=== PATIENT | male | born 1995 | race African-American/Black ===

== ENCOUNTER 2020-08-02 18:51 | Emergency (ER) | payer SELFPAY ==
[~2020-08-02] VITALS: Ht 177.8 cm; Wt 87.0 kg
[2020-08-02] MEDS ORDERED: LORAZEPAM 2MG/ML CPJ IV ONE ×4 (19:30→21:30)
[2020-08-02 19:41] LABS: BASOPHILS % 0.5 % (0.0-2.0); HEMATOCRIT. 47.1 % (42.0-52.0); HEMOGLOBIN. 15.9 g/dL (14.0-18.0); LYMPHOCYTES % 13.9 % (20.0-50.0); MEAN CORPUSCULAR HEMOGLOBIN 29.2 pg (28.0-32.0); MEAN CORPUSCULAR VOLUME 86.3 fL (80.0-94.0); MONOCYTES % 6.7 % (2.0-8.0); NEUTROPHILS % 78.9 % (40.0-76.0); PLATELET 323 x1000/uL (130-400); RED BLOOD CELL COUNT 5.46 mill/uL (4.7-6.1); RED CELL DISTRIBUTION WIDTH 13.4 % (11.6-14.6)
[2020-08-02 19:48] LABS: CHLORIDE 109 mEq/L (98-107)
[2020-08-02 19:51] LABS: INR 1.1; PARTIAL THROMBOPLASTIN TIME 26.9 sec (23.4-31.0); PROTHROMBIN TIME 11.5 sec (9.6-11.0)
[2020-08-02 19:56] LABS: ETHANOL BLOOD 256 mg/dL
[2020-08-02] MEDS: OLANZAPINE 10 MG/VIAL IM ONE ×2 (20:08→20:35)
[2020-08-02 20:34] LABS: *AMPHETAMINES SCREEN URINE NEGATIVE (NEGATIVE); *BARBITURATES SCREEN URINE NEGATIVE (NEGATIVE); *BENZODIAZEPINES SCREEN URINE NEGATIVE (NEGATIVE); *COCAINE SCREEN URINE NEGATIVE (NEGATIVE); METHADONE URINE SCREEN NEGATIVE (NEGATIVE)
[2020-08-02 20:35] LABS: CANNABINOID URINE SCREEN PRESUMTIVE POSITIVE (NEGATIVE); OPIATES URINE SCREEN NEGATIVE (NEGATIVE); PHENCYCLIDINE URINE SCREEN NEGATIVE (NEGATIVE)
[2020-08-02] MEDS ORDERED: DIPHENHYDRAMINE 50MG/ML VIAL IV ONE (20:45)
[2020-08-02] MEDS ORDERED: IOHEXOL-300 100 ML BOTTLE ONE (23:29)
[2020-08-03 03:05] VITALS: BP 90/60
== END 2020-08-03 03:07 | disposition home or self-care (01) ==
LOC: ER 18:51
DX: S00.83XA Contusion of other part of head, initial encounter (principal); Y08.89XA Assault by other specified means, initial encounter; S09.8XXA Other specified injuries of head, initial encounter; F10.10 Alcohol abuse, uncomplicated; Y90.8 Blood alcohol level of 240 mg/100 ml or more; Y93.9 Activity, unspecified; Y92.9 Unspecified place or not applicable
CPT/HCPCS: 36415; 70450; 70486; 71045; 71260; 72125; 74177; 80053; 80305; 80320; 83880; 84484; 85025; 85610; 85730; 93005; 96372; 96374; 96375; 96376; 99285; J1200; J2060; J3490; Q9967; G0480

== ENCOUNTER 2022-07-09 07:21 | Emergency (ER) | payer SELFPAY ==
[~2022-07-09] VITALS: Ht 177.8 cm; Wt 75.0 kg
[2022-07-09 07:47] VITALS: BP 119/46
[2022-07-09] MEDS ORDERED: DEXAMETHASONE 10 MG/ML VIAL IV ONE (08:00)
[2022-07-09] MEDS ORDERED: AMOX-494 MT (10:42)
[2022-07-09] MEDS ORDERED: IBUP-2028 MT (10:42)
== END 2022-07-09 10:55 | disposition home or self-care (01) ==
LOC: ER 07:21
DX: J02.9 Acute pharyngitis, unspecified (principal); Z20.822 Contact with and (suspected) exposure to COVID-19
CPT/HCPCS: 87070; 87426; 87430; 87804; 96374; 99283; C9803; J1100

== ENCOUNTER 2025-05-01 03:20 | Emergency (ER) | payer SELFPAY ==
[~2025-05-01] VITALS: Ht 177.8 cm; Wt 71.2 kg
[~2025-05-01 03:20] MED LIST: AMOX-494 MT; IBUP-2028 MT
[2025-05-01 03:44] VITALS: O2SAT 99
[2025-05-01] MEDS: ACETAMINOPHEN 325MG TABLET PO ONE (06:30)
[2025-05-01] MEDS: TETANUS, DIPHTHERIA, PERTUSSIS VAC/PF 0.5ML (>10YR OLD) IM ONE (06:31)
[2025-05-01] MEDS ORDERED: KETO10TA2 MT (07:17)
[2025-05-01 07:55] VITALS: BP 117/62; PULSE 71; RESP 18; TEMP 36.8; O2SAT 96
== END 2025-05-01 07:58 | disposition home or self-care (01) ==
LOC: ER 03:20
DX: S02.40EA Zygomatic fracture, right side, initial encounter for closed fracture (principal); M25.511 Pain in right shoulder; M25.512 Pain in left shoulder; M25.78 Osteophyte, vertebrae; Z90.49 Acquired absence of other specified parts of digestive tract; M48.02 Spinal stenosis, cervical region; X58.XXXA Exposure to other specified factors, initial encounter; Y93.89 Activity, other specified; Y92.89 Other specified places as the place of occurrence of the external cause; Y99.8 Other external cause status
CPT/HCPCS: 70486; 73030; 90471; 90715; 99291